=== PATIENT | male | born 1985 | race Caucasian/White ===

== ENCOUNTER 2016-09-22 22:18 | Emergency (ER) | payer BC ==
--- NOTE | ~2016-09-22 | ER ---
PATIENT'S NAME: FELICITY HINKLE [facility] AGE: 31 Y [address] ROOM: [place] [id number] LOCATION: [facility] ADMIT DATE: 09/22/2016 ER/Outpatient Report DISCHARGE DATE: 09/22/2016 FAMILY PHYSICIAN: PHYSICIAN, NO ATTENDING PHYSICIAN: Veto Woodall Admission date and time documented in the medical record. I saw the patient at 2230 hours. CHIEF COMPLAINT: Fall with facial chin laceration. HISTORY OF PRESENT ILLNESS: This patient is a 31-year-old male, who fell suffering a 2 to 2.5 cm laceration to right facial chin. He has some abrasions to his extremities. Otherwise, no loss of consciousness. No neuro changes. No other injuries. HOME MEDICATIONS: None. ALLERGIES: NONE. SOCIAL HISTORY: The patient smokes about 4 to 5 cigarettes a day. Drinks alcohol on a daily basis. SIGNIFICANT PAST MEDICAL HISTORY: Tobacco and alcohol abuse, otherwise negative. OPERATIONS: None. REVIEW OF SYSTEMS: All systems reviewed by me are negative with the exception of those discussed in the history of present illness. PHYSICAL EXAMINATION: VITAL SIGNS: Temperature 97.9 tympanic, pulse 101, respirations 16, blood pressure 144/93, O2 saturation on room air is 94%. HEENT: On examination, the patient has a deep 2 to 2.5 cm laceration to right facial chin. EMERGENCY DEPARTMENT COURSE: Wound was cleansed with normal saline. 1% Xylocaine was used for local PATIENT'S NAME: FELICITY HINKLE [facility] AGE: 31 Y [address] ROOM: [place] [id number] LOCATION: [facility] ADMIT DATE: 09/22/2016 ER/Outpatient Report DISCHARGE DATE: 09/22/2016 FAMILY PHYSICIAN: PHYSICIAN, NO ATTENDING PHYSICIAN: Veto Woodall infiltrative anesthesia. Wound was closed in simple fashion with 5-0 Ethilon suture. The patient tolerated the procedure well. Wound was cleansed and dressed. IMPRESSION: A 2 to 2.5 cm facial chin laceration with simple closure. PLAN: The patient dismissed home. Observation. Activity as tolerated. Keep wound clean. Watch for infection. Follow up with personal physician in 7 to 8 days for suture removal or sooner if needed. MD JESSICA ZAMAN/keith /[id number] d: 09/22/16 2343 t: 09/23/16 1808, OUTPATIENT REPORT
== END 2016-09-22 22:48 | disposition disaster alternative care site (69) ==
LOC: GACC 22:18
PROC: 0HQ1XZZ Repair Face Skin, External Approach (ICD-10-PCS; principal; 2016-09-22)
DX: S01.81XA Laceration without foreign body of other part of head, initial encounter (principal); F17.210 Nicotine dependence, cigarettes, uncomplicated; W19.XXXA Unspecified fall, initial encounter